=== PATIENT | female | born 1990 | race Caucasian/White ===

== ENCOUNTER 2024-03-06 18:08 | Emergency (ER) | payer SELFPAY ==
[2024-03-06 18:28] VITALS: BP 112/67; PULSE 77; RESP 18; TEMP 36.6; O2SAT 100
--- NOTE | 2024-03-06 18:35 | ED_ITS ---
HPI - URI/Sore Throat General Chief Complaint: Upper Respiratory Infection Stated Complaint: cough and throat pain Time Seen by Provider: 03/06/24 18:35 Source: patient Mode of arrival: ambulatory Limitations: no limitations History of Present Illness HPI Narrative: 33 yo F presents with c/o cough, chest congestion for 4 days. Hx of long covid. States she is now more susceptible to getting pneumonia due to the damage from her lungs from covid. Patient is visiting here from out of town. Called her primary care physician and/or in today for antibiotic and prescription cough medication but he stated he was unable to call it in because [place]. Patient states she wore her pulse ox today while walking around her home and her oxygen saturation dropped to 90% and her heart rate up went up to 140. Patient states that is possibly inaccurate because she was wearing nail [place] at that time. She later took the nail [place] off his and her oxygen saturation was normal. All systems reviewed and negative except as noted above. Related Data Allergies Allergy/AdvReac Type Severity Reaction Status Date / Time levofloxacin [From Levaquin] Allergy Rash Verified 03/06/24 18:37 morphine Allergy Itching Verified 03/06/24 18:37 Review of Systems Review of Systems: CONSTITUTIONAL: Denies fever, chills, or sweats. EYES: Denies visual changes, redness, or discharge. ENT: Denies rhinorrhea, congestion, sore throat, or otalgia. CARDIOVASCULAR: Denies chest pain, palpitations, or edema. RESPIRATORY: Reports cough, chest congestion, dyspnea with exertion. GASTROINTESTINAL: Denies abdominal pain, nausea, vomiting, or diarrhea. GENITOURINARY: Denies dysuria or hematuria. SKIN: Denies rash or itching. MUSCULOSKELETAL: Denies back pain, joint pain, or myalgia. NEUROLOGIC: Denies headache, numbness, or weakness. PSYCHIATRIC: Denies anxiety or depression. All other systems reviewed are negative, except as documented in HPI. [facility] Comments At time of signature, agree with nursing past medical, surgical, social and family history. There is no relevant family history pertinent to the presenting complaint. Exam Narrative: GENERAL: Patient is obese, no respiratory distress noted. HEAD: normocephalic, atraumatic. EYES: PERRL. Sclera clear/white. Vision is grossly intact. EARS: External ears normal, auditory canals clear and without drainage, TMs normal without perforation. Hearing grossly intact. NOSE: External nose normal with no obvious nasal discharge, nares without redness, no rhinorrhea. THROAT: Mucous membranes moist, Erythema, tonsils 1+ bilaterally without exudates, clear postnasal drainage NECK: Neck supple, non-tender without lymphadenopathy, masses or thyromegaly. CARDIOVASCULAR: Regular rate and rhythm without murmurs, gallops, or rubs. RESPIRATORY: decreased throughout all lung smith but could be due to body habitus. Breath sounds equal bilaterally. No wheezes, rales, or rhonchi. SKIN: warm, Dry, intact with no suspicious lesions or rash, good texture and turgor. NEURO: awake, alert, and oriented to person, place and time. There were no obvious focal neurologic abnormalities. EXTREMITIES: No joint tenderness, effusion, or edema noted. Course Course Level of Care: Express Care Visit Vital Signs Vital signs: Vital Signs Temperature 36.6 C 03/06/24 18:28 Pulse Rate 77 03/06/24 18:28 Respiratory Rate 18 03/06/24 18:28 Blood Pressure 112/67 03/06/24 18:28 Pulse Oximetry 100 03/06/24 18:28 Oxygen Delivery Room Air 03/06/24 18:28 Temperature 36.6 C 03/06/24 18:28 Pulse Rate 77 03/06/24 18:28 Respiratory Rate 18 03/06/24 18:28 Blood Pressure 112/67 03/06/24 18:28 Pulse Oximetry 100 03/06/24 18:28 Oxygen Delivery Room Air 03/06/24 18:28 reviewed MDM - URI/Sore Throat MDM Narrative Medical decision making narrative: Patient reports due to long damage from COVID she is now more susceptible to developing pneumonia. Her lungs were decreased throughout all lung smith but this could be due to her body habitus. As a precaution I will prescribe antibiotic. Patient requesting promethazine with codeine. This medication is no longer available at [facility]'s pharmacy. I spoke with the pharmacist regarding this. As an alternative I prescribed cough ice and with codeine and patient agreed with this. I did a walking test with pulse ox and her oxygen saturation stayed at 100% and her heart rate increased to 110 . Patient is aware of diagnosis, understands and agrees to treatment plan. Anticipatory guidance given. Patient agrees to follow-up as directed and is aware of reasons to seek care at the emergency department. Portions of this record may have been created with voice recognition software Differential Diagnosis Differential diagnosis: Likely upper respiratory infection, sinusitis, viral infection and bronchitis Discharge Plan Discharge Clinical Impression: Upper respiratory infection with cough and congestion Patient Disposition: Home, Self-Care Condition: Stable Instructions: Antibiotic Form, Acute Cough (ED) Additional Instructions: take medications as prescribed. Do not drive while taking prescription cough medication, this medication may make you drowsy. Drink at least 64 oz of water a day. Drink hot tea with honey to soothe throat and treat cough. Follow-up with your primary care physician if symptoms are not improving. If you are having difficulty breathing go to the ER. Prescriptions: New doxycycline hyclate 100 mg capsule 100 mg PO BID 7 Days Qty: 14 0RF methylprednisolone [Medrol (Artur)] 4 mg tablets,dose pack See Rx Instructions PO .COMPLEX Qty: 21 0RF Rx Instructions: orally per package directions azelastine 137 mcg (0.1 %) spray,non-aerosol 1 spray intranasal Q12H Qty: 30 0RF Rx Instructions: administer into each nostril codeine-guaifenesin [Virtussin AC] 10-100 mg/5 mL liquid 5 ml PO Q6H PRN (Reason: cough) Qty: 120 0RF Follow-up/Referrals: UNKNOWN,DOCTOR [Primary Care Provider] - Time of Disposition: 18:52
== END 2024-03-06 18:56 | disposition home or self-care (01) ==
PROVIDERS: Emergency Provider Nurse Practitioner Family
DX: J06.9 Acute upper respiratory infection, unspecified (principal)
CPT/HCPCS: 99213; G0463